=== PATIENT | male | born 1935 | race Caucasian/White ===

== ENCOUNTER 2020-03-05 14:59 | Inpatient (IN) | payer MEDICARE ==
[~2020-03-05] VITALS: Ht 185.4 cm; Wt 88.0 kg
[2020-03-05 15:56] LABS: BASOPHILS # (AUTO) 0.1 X10'3 (0-0.2); BASOPHILS % (AUTO) 1.1 % (0-1); EOSINOPHILS # (AUTO) 0.7 X10'3 (0-0.9); EOSINOPHILS % (AUTO) 9.4 % (0-6); HEMATOCRIT 41.6 % (42.0-52.0); HEMOGLOBIN 13.5 g/dl (14.0-17.9); LYMPHOCYTES # (AUTO) 0.9 X10'3 (1.1-4.8); MEAN CORPUSCULAR HEMOGLOBIN 29.7 PG (27.0-31.0); MEAN CORPUSCULAR HGB CONC 32.4 g/dL (33.0-36.5); MEAN CORPUSCULAR VOLUME 91.6 FL (78-98); MEAN PLATELET VOLUME 7.7 FL (7.4-10.4); MONOCYTES # (AUTO) 0.7 X10'3 (0-0.9); MONOCYTES % (AUTO) 8.6 % (2-12); NEUTROPHILS # (AUTO) 5.5 X10'3 (1.8-7.7); NEUTROPHILS % (AUTO) 69.9 % (42-75); PLATELET COUNT 489 X10'3 (140-440); RED BLOOD COUNT 4.54 X10'6 (4.70-6.10); RED CELL DISTRIBUTION WIDTH 14.3 % (11.5-14.5); WHITE BLOOD COUNT 7.9 X10'3 (4.5-11.0)
[2020-03-05 16:10] LABS: ALANINE AMINOTRANSFERASE 18 U/L (12-78); ALBUMIN/GLOBULIN RATIO 0.7 (1.1-1.5); ALKALINE PHOSPHATASE 75 IU/L (46-116); ANION GAP 9 (8-16); ASPARTATE AMINO TRANSFERASE 23 U/L (10-37); BILIRUBIN,TOTAL 0.5 MG/DL (0.1-1.0); BLOOD UREA NITROGEN 18 MG/DL (7-18); BUN/CREATININE RATIO 18.2 (5.4-32.0); CALCIUM 9.3 MG/DL (8.5-10.1); CHLORIDE 103 MMOL/L (99-107); CREATININE 0.99 MG/DL (0.60-1.10); GLUCOSE 115 MG/DL (70-104); POTASSIUM 4.8 MMOL/L (3.5-5.1); SODIUM 138 MMOL/L (135-145); TOTAL CARBON DIOXIDE 26.4 MMOL/L (24-32); TOTAL PROTEIN 7.3 G/DL (6.4-8.2); eGFR 72 ML/MIN
[2020-03-05] MEDS ORDERED: furosemide 10 MG/1 ML 10ml inj IV ONE (16:20)
[2020-03-05] MEDS ORDERED: aspirin 325mg tablet PO ONE (16:25)
[2020-03-05] MEDS ORDERED: iohexol 350MG/ML 100ml bottle IV ONE (16:34)
--- NOTE | 2020-03-05 16:44 | NUR ---
Patient on COVID precautions. hide cooking operator aware.
[2020-03-05 16:48] LABS: D-DIMER 4.83 MG/L FEU (0-0.50)
[2020-03-05] MEDS ORDERED: SPIR25TA5 PO (18:14)
[2020-03-05] MEDS ORDERED: CARV3.122 PO (18:14)
[2020-03-05] MEDS ORDERED: CLIN300C56 PO (18:14)
[2020-03-05] MEDS ORDERED: FURO40TA4 PO (18:14)
[2020-03-05] MEDS ORDERED: FLO0.4C PO (18:14)
--- NOTE | 2020-03-05 18:22 | NUR ---
covid 19 test negative
--- NOTE | 2020-03-05 18:22 | NUR ---
patietn irritable and wants bp cuff off dry cough noted able to get BP
[2020-03-05] MEDS: tirofiban 5mg in NS 100mL 100 ML IV SCH (19:50)
[2020-03-05] MEDS ORDERED: heparin 10,000 units/1 ML INJ IV ONE (19:55)
[2020-03-05] MEDS ORDERED: heparin 25,000 UNIT/250ml bag 250 ML IV SCH (19:55)
[2020-03-05] MEDS ORDERED: morphine 2 MG/ML inj. syringe IV PRN ×2 (20:45)
[2020-03-05] MEDS ORDERED: magnesium Cl slow-release 64mg tablet PO PRN (20:45)
[2020-03-05] MEDS ORDERED: ondansetron/PF 4mg/2ml inj IV PRN (20:45)
[2020-03-05] MEDS ORDERED: magnesium 4gm in 100ml NS 100 ML IV PRN (20:45)
[2020-03-05] MEDS ORDERED: acetaminophen 325mg tablet PO PRN (20:45)
[2020-03-05] MEDS ORDERED: potassium Cl 20 mEq SR tablet PO PRN ×2 (20:45)
[2020-03-05] MEDS ORDERED: potassium CL 10mEq/100ml bag 100 ML IV PRN ×2 (20:45)
[2020-03-05] MEDS ORDERED: magnesium 2GM in 50ml NS 50 ML IV PRN (20:45)
--- NOTE | 2020-03-05 21:11 | NUR ---
Elizabeth KIRKPATRICK will call back to get report in 10 minutes
[2020-03-05 21:43] LABS: PARTIAL THROMBOPLASTIN TIME 26 SECONDS (22-32)
[2020-03-05 22:00] VITALS: BP 124/80
[2020-03-05] MEDS ORDERED: carVEDilol 3.125mg tablet PO SCH (23:05)
[2020-03-06] VITALS (17 sets, daily range): BP systolic 99–155; BP diastolic 61–90
[2020-03-06] MEDS: tirofiban 5mg in NS 100mL 100 ML IV SCH (00:51)
[2020-03-06] MEDS ORDERED: LIDOcaine/epinephrine/tetracaine TOPICAL sol 3 ML syringe TOP ONE (05:30)
[2020-03-06] MEDS ORDERED: LIDOcaine 1% (10mg/ml)w/preservative injection 20ml MDV ONE ×2 (06:02→11:10)
[2020-03-06] MEDS ORDERED: heparin 1,000unit/ml 10ml vial 10 ML ONE (06:02)
[2020-03-06] MEDS ORDERED: fentaNYL/PF 50MCG/1 ML 2ML syringe ONE (06:02)
[2020-03-06] MEDS ORDERED: nitroGLYCERIN-Tridil 50MG/D5W 250 ML IV ONE (06:02)
[2020-03-06] MEDS ORDERED: midazolam 2 mg/2 ml injection ONE (06:02)
[2020-03-06] MEDS ORDERED: verapamil 2.5 mg/ml inj IV ONE (06:02)
[2020-03-06] MEDS ORDERED: iohexol 350 MG/ML 50ML vial IV ONE (06:03)
[2020-03-06] MEDS ORDERED: iohexol 350MG/ML 100ml bottle IV ONE ×3 (06:03→07:37)
[2020-03-06 06:24] LABS: ALBUMIN 2.8 G/DL (3.4-5.0); ANION GAP 8 (8-16); BLOOD UREA NITROGEN 18 MG/DL (7-18); BUN/CREATININE RATIO 16.2 (5.4-32.0); CHLORIDE 104 MMOL/L (99-107); CHOL/HDL RATIO 4.7 (0.00-4.99); CHOLESTEROL 184 MG/DL (0-200); CREATININE 1.11 MG/DL (0.60-1.10); GLUCOSE 105 MG/DL (70-104); HDL CHOLESTEROL 39 MG/DL (35-60); LDL CHOLESTEROL 135 MG/DL (50-100); MAGNESIUM 2.2 MG/DL (1.5-2.4); POTASSIUM 4.2 MMOL/L (3.5-5.1); SODIUM 137 MMOL/L (135-145); TOTAL CARBON DIOXIDE 24.6 MMOL/L (24-32); TRIGLYCERIDES 103 MG/DL (20-135); eGFR 63 ML/MIN
[2020-03-06] MEDS ORDERED: heparin 1,000 UNITS/NS 500ml 500 ML ONE (07:06)
[2020-03-06] MEDS: carVEDilol 3.125mg tablet PO SCH ×2 (08:00→19:44)
[2020-03-06] MEDS: K and/or MAG REPLACEMENT MC SCH ×2 (08:00→20:00)
[2020-03-06] MEDS: spironolactone 25 MG tablet PO SCH ×2 (08:00→19:43)
[2020-03-06] MEDS: furosemide 40mg tablet PO SCH ×2 (08:00→19:43)
[2020-03-06] MEDS ORDERED: ticagrelor 90mg tablet ONE (08:04)
[2020-03-06] MEDS ORDERED: normal saline 1000ml 1,000 ML IV SCH (09:15)
[2020-03-06] MEDS ORDERED: morphine 2 MG/ML inj. syringe IV PRN (09:15)
--- NOTE | 2020-03-06 10:01 | NUR ---
Pt arrived from label paster at 0850, Sheath to R-groin. On heparin till 10am. Pt to stay flat. ACT at 1030.
[2020-03-06] MEDS ORDERED: HYDROcodone/acetaminophen 10/325mg tab PO PRN (10:05)
[2020-03-06] MEDS: aspirin 81mg tab.chew PO SCH (10:56)
--- NOTE | 2020-03-06 11:17 | NUR ---
lab engineer RN's at pt bedside at this time.
--- NOTE | 2020-03-06 11:31 | NUR ---
Sheath Removed by Drill Operator Pneumatic nurse at 1125am. No hematoma, pt to stay flat for the next 4hrs
[2020-03-06 12:00] LABS: BASOPHILS # (AUTO) 0.1 X10'3 (0-0.2); EOSINOPHILS # (AUTO) 0.6 X10'3 (0-0.9); EOSINOPHILS % (AUTO) 8.6 % (0-6); HEMATOCRIT 39.2 % (42.0-52.0); HEMOGLOBIN 12.6 g/dl (14.0-17.9); LYMPHOCYTES % (AUTO) 13.6 % (21-51); MEAN CORPUSCULAR HEMOGLOBIN 29.7 PG (27.0-31.0); MEAN CORPUSCULAR HGB CONC 32.3 g/dL (33.0-36.5); MEAN CORPUSCULAR VOLUME 91.8 FL (78-98); MEAN PLATELET VOLUME 7.6 FL (7.4-10.4); MONOCYTES # (AUTO) 0.8 X10'3 (0-0.9); MONOCYTES % (AUTO) 12.1 % (2-12); NEUTROPHILS # (AUTO) 4.5 X10'3 (1.8-7.7); NEUTROPHILS % (AUTO) 64.7 % (42-75); PLATELET COUNT 417 X10'3 (140-440); RED BLOOD COUNT 4.26 X10'6 (4.70-6.10); RED CELL DISTRIBUTION WIDTH 14.2 % (11.5-14.5)
--- NOTE | 2020-03-06 12:39 | NUR ---
notified. PAGER ID: [phone] MESSAGE: Re; Phillip Rodriguez. 84M. Patient will be transferring from ICU to PCU shortly. What is the game plan concerning his PE and Anti-coagulants? thanks. Cynthia Leyva [id number] Addendum: 03/06/20 at 1245 by Cynthia Ortiz RN Dr. Zamora would like the heparin drip to be continued secondary to pulmonary embolism, but to consult with Dr. Bailon regarding anti-coagulation.
[2020-03-06] MEDS ORDERED: tirofiban 5mg in NS 100mL 100 ML IV SCH (13:08)
--- NOTE | 2020-03-06 13:18 | NUR ---
Called Dr. Leslie regarding CT result, pulmonary emboli and Thoracentesis. Per Dr. Leslie to do a Thora- consult and he said he will talk to to address the CT results. He also spoke with pt's (Zehra) who was at the bedside. He said to transfer pt to Tele floor and stop normal saline once this bag is empty. Orders noted. Gave report to Cynthia CARCAMO on Tele floor). Transferred pt per bed. Addendum: 03/06/20 at 1327 by Johnathon Davidson RN called IR regarding Thora-consult.
--- NOTE | 2020-03-06 13:20 | NUR ---
Patient report recieved by KAYA Hutchinson. Brought up by ICU charge nurse Tracey and Evangelina, primary nurse. Patient's was following along side with patient. At time of arrival, right groin clean, dry and intact. Vital sings at this time 113/71, 100 hr, 97%, 16 respirations, no pain, and a temperature of 98.4. Patient oriented to the floor, call osorio within reach.
--- NOTE | 2020-03-06 16:11 | NUR ---
Chest tube clamped at 1600 after 1090ml of output, minor bleeding at chest tube insertion site. Called Angio suite to discuss case, they recomend to clamp for one hour and then see how much output is put out. If greater than 1000ml in one hour, contact nursing railroad car cleaning supervisor to get career transition specialist IR doctor's cell phone number. Will continue to monitor.
[2020-03-06] MEDS: tamsulosin 0.4mg capsule PO SCH (17:07)
--- NOTE | 2020-03-06 17:30 | NUR ---
Dr. Zamora was rounding and pulled to see patient's output from chest tube. Patient at that time after unclamping chest tube at 1700 had nearly [address] Zamora called Dr. Mendoza to discuss the patient's output. He recommended a Chest X-ray to be taken now, to place chest tube to water seal, to have hemograms performed q6hr starting at 2000.
[2020-03-06] MEDS ORDERED: LORazepam 2 mg/ml vial IV PRN (18:35)
--- NOTE | 2020-03-06 18:53 | NUR ---
Patient in room PCU 3023. I have received report from Cynthia KIRKPATRICK and had the opportunity to ask questions and assume patient care.
[2020-03-06] MEDS: ticagrelor 90mg tablet PO SCH (19:42)
[2020-03-06] MEDS: LORazepam 1 MG tablet PO PRN (19:44)
[2020-03-06] MEDS: HYDROcodone/acetaminophen 10/325mg tab PO PRN (19:45)
[2020-03-06 21:03] LABS: HEMATOCRIT 37.5 % (42.0-52.0); HEMOGLOBIN 12.2 g/dl (14.0-17.9); MEAN CORPUSCULAR HEMOGLOBIN 30.2 PG (27.0-31.0); MEAN CORPUSCULAR HGB CONC 32.6 g/dL (33.0-36.5); MEAN CORPUSCULAR VOLUME 92.5 FL (78-98); MEAN PLATELET VOLUME 7.6 FL (7.4-10.4); PLATELET COUNT 395 X10'3 (140-440); RED BLOOD COUNT 4.05 X10'6 (4.70-6.10); RED CELL DISTRIBUTION WIDTH 14.2 % (11.5-14.5); WHITE BLOOD COUNT 8.6 X10'3 (4.5-11.0)
--- NOTE | 2020-03-06 21:20 | NUR ---
Pt. found getting out of bed, chest tube observed out of R lat/posterior site. Pressure drsg applied. VS: HR 116/min, RR 24/min, O2 Sat low 70s, put on 2L/NC, O2 Sat increase to 94%, BP 129/79. Lung sounds unchanged, diminished throughout w/crepitus like fine rales to R base. Pt. denies SOB, none observed. Chest tube drainage dark red bloody fluid contained in atrium, 60mls over last [address] Sauceda notified of incident, CXR ordered and IR attempted to be contacted per . Pt. moved to 3012B where they can be monitored by a sitter.
--- NOTE | 2020-03-06 23:00 | NUR ---
O2 off as Pt. sat 97% on RA, no SOB. Drsg to former R side chest tube site remains CDI, no break through drainage noted. Pt remains impulsive, overestimating ability, disoriented when awakens. Reorients easily. VSS.
[2020-03-07 02:00] VITALS: BP 109/59
[2020-03-07] MEDS: HYDROcodone/acetaminophen 10/325mg tab PO PRN (02:43)
[2020-03-07 03:03] LABS: BASOPHILS % (AUTO) 0.6 % (0-1); EOSINOPHILS # (AUTO) 0.6 X10'3 (0-0.9); EOSINOPHILS % (AUTO) 8.2 % (0-6); HEMATOCRIT 37.5 % (42.0-52.0); HEMOGLOBIN 12.3 g/dl (14.0-17.9); LYMPHOCYTES # (AUTO) 0.7 X10'3 (1.1-4.8); LYMPHOCYTES % (AUTO) 9.6 % (21-51); MEAN CORPUSCULAR HEMOGLOBIN 30.1 PG (27.0-31.0); MEAN CORPUSCULAR HGB CONC 32.9 g/dL (33.0-36.5); MEAN CORPUSCULAR VOLUME 91.4 FL (78-98); MEAN PLATELET VOLUME 7.8 FL (7.4-10.4); MONOCYTES # (AUTO) 0.7 X10'3 (0-0.9); NEUTROPHILS # (AUTO) 5.3 X10'3 (1.8-7.7); NEUTROPHILS % (AUTO) 71.6 % (42-75); PLATELET COUNT 390 X10'3 (140-440); RED CELL DISTRIBUTION WIDTH 14.3 % (11.5-14.5); WHITE BLOOD COUNT 7.4 X10'3 (4.5-11.0)
[2020-03-07 03:10] LABS: ALBUMIN 2.5 G/DL (3.4-5.0); ANION GAP 5 (8-16); BLOOD UREA NITROGEN 20 MG/DL (7-18); BUN/CREATININE RATIO 19.2 (5.4-32.0); CALCIUM 8.8 MG/DL (8.5-10.1); CHLORIDE 106 MMOL/L (99-107); CREATININE 1.04 MG/DL (0.60-1.10); GLUCOSE 105 MG/DL (70-104); MAGNESIUM 2.2 MG/DL (1.5-2.4); SODIUM 138 MMOL/L (135-145); TOTAL CARBON DIOXIDE 26.8 MMOL/L (24-32); eGFR 68 ML/MIN
--- NOTE | 2020-03-07 07:01 | NUR ---
Problems reprioritized. Patient report given, questions answered & plan of care reviewed with Gricelda KIRKPATRICK.
[2020-03-07] MEDS: K and/or MAG REPLACEMENT MC SCH ×2 (08:00→20:00)
[2020-03-07] MEDS: furosemide 40mg tablet PO SCH ×2 (08:00→20:50)
[2020-03-07] MEDS: spironolactone 25 MG tablet PO SCH ×2 (08:00→20:52)
[2020-03-07] MEDS: aspirin 81mg tab.chew PO SCH ×2 (08:00→11:35)
[2020-03-07] MEDS: ticagrelor 90mg tablet PO SCH ×3 (08:00→20:51)
--- NOTE | 2020-03-07 08:00 | NUR ---
PATIENT RIGHT PUPIL ENLARGED DUE TO AN INJURY 45 YEARS AGO Addendum: 03/07/20 at 1549 by Gricelda Eubanks RN Amended: Links added.
[2020-03-07 08:08] LABS: HEMATOCRIT 37.9 % (42.0-52.0); HEMOGLOBIN 12.5 g/dl (14.0-17.9); MEAN CORPUSCULAR HEMOGLOBIN 30.2 PG (27.0-31.0); MEAN CORPUSCULAR HGB CONC 32.9 g/dL (33.0-36.5); MEAN CORPUSCULAR VOLUME 91.8 FL (78-98); MEAN PLATELET VOLUME 7.3 FL (7.4-10.4); PLATELET COUNT 382 X10'3 (140-440); RED BLOOD COUNT 4.12 X10'6 (4.70-6.10); RED CELL DISTRIBUTION WIDTH 14.3 % (11.5-14.5); WHITE BLOOD COUNT 8.1 X10'3 (4.5-11.0)
[2020-03-07] MEDS: tamsulosin 0.4mg capsule PO SCH (08:16)
[2020-03-07] MEDS: atorvastatin 20mg tablet PO SCH (08:16)
[2020-03-07] MEDS: sacubitril/valsartan 24mg-26mg tablet PO SCH ×2 (08:17→20:51)
[2020-03-07] MEDS: LORazepam 1 MG tablet PO PRN ×2 (08:17→20:50)
[2020-03-07] MEDS: carVEDilol 3.125mg tablet PO SCH ×2 (08:19→20:51)
[2020-03-07 08:20] VITALS: BP 114/62
--- NOTE | 2020-03-07 10:00 | NUR ---
FROM THE START OF SHIFT PATIENT STATED HE WAS GOING HOME REGARDLESS OF WHAT THE DR SAID HE FELT HE WAS HERE TOO LONG. I EDUCATED THE PATIENT ON WHY HIS CARE SHOULD CONTINUE AND THAT HE WAS NOT SAFE TO GO HOME. PATIENT STATED HE DID NOT CARE WAS GOING TO GO HOME ANYWAY. INFORMED THE PATIENT THAT THIS WOULD RESULT IN HIM LEAVING AGAINST MEDICAL [facility] AND HE STATED THAT HE STILL WAS GOING HOME. CALLED THE TO UPDATE HER ON THE EVENTS OF THE NIGHT AND THAT THE PATIENT WAS NOT SAFE TO GO HOME YET AND WAS ASKED TO TALK TO THE PATIENT. WHILE IN THE PATIENTS ROOM THE PATIENT WAS STATING THAT HE WAS GOING HOME AND HIS WAS COMING FOR HIM. TOUCHED BASES WITH AGAIN AND SHE STATED THAT SHE WAS NOT GOING TO TAKE HIM HOME UNTIL HE WAS SAFE TOO. ENCOURAGED TO BE MORE DIRECT, THIS FAILED. DR WAS PAGED. CHARGE NURSE SPOKE WITH THE PATIENT AND THE PATIENT UNDERSTOOD THAT HE WAS TO STAY AND PATIENT CALMED DOWN AND WENT TO SLEEP.
[2020-03-07 11:00] VITALS: BP 105/66
[2020-03-07 15:00] VITALS: BP 102/60
[2020-03-07] MEDS ORDERED: potassium Cl 20 mEq SR tablet PO STA (15:41)
[2020-03-07] MEDS ORDERED: furosemide 40mg/4ml inj IV ONE (15:45)
[2020-03-07 18:00] VITALS: BP 104/52
--- NOTE | 2020-03-07 18:00 | NUR ---
Patient in room PCU 3012. I have received report from Gricelda KIRKPATRICK and had the opportunity to ask questions and assume patient care.
--- NOTE | 2020-03-07 18:42 | NUR ---
Problems reprioritized. Patient report given, questions answered & plan of care reviewed with KAYA MARROQUIN & KAYA MURO.
[2020-03-07 22:00] VITALS: BP 90/55
[2020-03-08 02:00] VITALS: BP 104/69
[2020-03-08 02:38] LABS: BASOPHILS # (AUTO) 0.1 X10'3 (0-0.2); EOSINOPHILS # (AUTO) 0.9 X10'3 (0-0.9); LYMPHOCYTES % (AUTO) 9.1 % (21-51); NEUTROPHILS % (AUTO) 72.2 % (42-75)
[2020-03-08 02:40] LABS: BASOPHILS % (AUTO) 0.7 % (0-1); EOSINOPHILS % (AUTO) 8.2 % (0-6); HEMATOCRIT 38.4 % (42.0-52.0); HEMOGLOBIN 12.3 g/dl (14.0-17.9); MEAN CORPUSCULAR HEMOGLOBIN 29.4 PG (27.0-31.0); MEAN CORPUSCULAR HGB CONC 32.2 g/dL (33.0-36.5); MEAN CORPUSCULAR VOLUME 91.2 FL (78-98); MONOCYTES % (AUTO) 9.8 % (2-12); NEUTROPHILS # (AUTO) 7.6 X10'3 (1.8-7.7); PLATELET COUNT 433 X10'3 (140-440); RED BLOOD COUNT 4.21 X10'6 (4.70-6.10); RED CELL DISTRIBUTION WIDTH 14.5 % (11.5-14.5); WHITE BLOOD COUNT 10.5 X10'3 (4.5-11.0)
[2020-03-08 02:48] LABS: ALBUMIN 2.9 G/DL (3.4-5.0); ANION GAP 9 (8-16); BLOOD UREA NITROGEN 20 MG/DL (7-18); BUN/CREATININE RATIO 15.7 (5.4-32.0); CALCIUM 9.2 MG/DL (8.5-10.1); CHLORIDE 103 MMOL/L (99-107); CREATININE 1.27 MG/DL (0.60-1.10); GLUCOSE 113 MG/DL (70-104); POTASSIUM 4.1 MMOL/L (3.5-5.1); SODIUM 138 MMOL/L (135-145); TOTAL CARBON DIOXIDE 25.9 MMOL/L (24-32); eGFR 54 ML/MIN
--- NOTE | 2020-03-08 05:19 | NUR ---
Orientee documentation: I have reviewed and agree with all interventions, assessments performed and documented by KAYA Rangel.
[2020-03-08 06:00] VITALS: BP 106/63
--- NOTE | 2020-03-08 06:42 | NUR ---
Problems reprioritized. Patient report given, questions answered & plan of care reviewed with Migel RN.
--- NOTE | 2020-03-08 06:43 | NUR ---
Patient in room PCU 3012. I have received report from KAYA MARROQUIN and had the opportunity to ask questions and assume patient care.
[2020-03-08] MEDS: spironolactone 25 MG tablet PO SCH (08:00)
[2020-03-08] MEDS: atorvastatin 20mg tablet PO SCH (08:00)
[2020-03-08] MEDS: tamsulosin 0.4mg capsule PO SCH (08:00)
[2020-03-08] MEDS: carVEDilol 3.125mg tablet PO SCH (08:00)
[2020-03-08] MEDS: ticagrelor 90mg tablet PO SCH (08:00)
[2020-03-08] MEDS: sacubitril/valsartan 24mg-26mg tablet PO SCH (08:00)
[2020-03-08] MEDS: furosemide 40mg tablet PO SCH (08:00)
[2020-03-08] MEDS: aspirin 81mg tab.chew PO SCH (08:00)
--- NOTE | 2020-03-08 08:27 | NUR ---
PATIENT WANTS TO LEAVE AMA, FORM SIGNED AND MD PAGED, ENCOURAGED PATIENT TO STAY UNTIL MD DISCHARGES. HE REMAINS ADAMENT ABOUT LEAVING. HE WILL LET US KNOW WHEN HIS RIDE IS HERE SO HIS IV AND TELE MONITOR CAN BE REMOVED.
--- NOTE | 2020-03-08 09:40 | NUR ---
DANTE GILMORE RN, DC PIV. HERE. TO TAKE HOME. SIGNED OUT AMA.
--- NOTE | 2020-03-08 09:48 | NUR ---
RE ORIENTED TO TIME EASILY. REFUSED TO BE ASSESSED, REFUSED ALL CARE, REFUSED ALL MEDICATIONS.PLANS TO SIGN OUT AMA.
[2020-03-09 08:25] LABS: ACTIVATED PROTEIN C RESISTANCE 2.5 ratio (2.2-3.5)
== END 2020-03-08 09:40 | disposition home health service (06) | DRG 246 ==
LOC: ER 15:00 → ED HOLD 20:43 → PCU 3S 21:51 → ICU 2S 03-06 08:35 → PCU 3S 03-06 13:07
PROVIDERS: ADMIT Internal Medicine; ATTEND Internal Medicine
PROC: B32T1ZZ Computerized Tomography (CT Scan) of Left Pulmonary Artery using Low Osmolar Contrast (ICD-10-PCS; 2020-03-05)
PROC: B3201ZZ Computerized Tomography (CT Scan) of Thoracic Aorta using Low Osmolar Contrast (ICD-10-PCS; 2020-03-05)
PROC: B32S1ZZ Computerized Tomography (CT Scan) of Right Pulmonary Artery using Low Osmolar Contrast (ICD-10-PCS; 2020-03-05)
PROC: 4A023N8 Measurement of Cardiac Sampling and Pressure, Bilateral, Percutaneous Approach (ICD-10-PCS; principal; 2020-03-06)
PROC: 027135Z Dilation of Coronary Artery, Two Arteries with Two Drug-eluting Intraluminal Devices, Percutaneous Approach (ICD-10-PCS; 2020-03-06)
PROC: B2111ZZ Fluoroscopy of Multiple Coronary Arteries using Low Osmolar Contrast (ICD-10-PCS; 2020-03-06)
PROC: 0W9930Z Drainage of Right Pleural Cavity with Drainage Device, Percutaneous Approach (ICD-10-PCS; 2020-03-06)
DX: I21.4 Non-ST elevation (NSTEMI) myocardial infarction (principal); I26.99 Other pulmonary embolism without acute cor pulmonale; G93.41 Metabolic encephalopathy; I42.0 Dilated cardiomyopathy; J94.2 Hemothorax; J91.8 Pleural effusion in other conditions classified elsewhere; I50.20 Unspecified systolic (congestive) heart failure; N17.9 Acute kidney failure, unspecified; N18.9 Chronic kidney disease, unspecified; I25.10 Atherosclerotic heart disease of native coronary artery without angina pectoris; G31.84 Mild cognitive impairment of uncertain or unknown etiology; D50.0 Iron deficiency anemia secondary to blood loss (chronic); F10.20 Alcohol dependence, uncomplicated; I35.0 Nonrheumatic aortic (valve) stenosis; Z96.651 Presence of right artificial knee joint; N40.0 Benign prostatic hyperplasia without lower urinary tract symptoms; Z86.718 Personal history of other venous thrombosis and embolism
CPT/HCPCS: 32555; 32557; 36415; 71045; 71275; 80048; 80053; 80061; 82948; 83735; 83880; 84484; 85025; 85027; 85347; 85379; 85610; 85730; 87081; 87635; 93005; 93306; 93308; 93458; 96374; 96375; 97161; 97530; 99152; 99153; 99291; A4620; A6258; A6449; C1725; C1751; C1760; C1769; C1874; C1894; C9600; C9803; G0378; J1644; J1940; J2001; J2250; J3010; J3246; J3490; J7030; J7040; Q9967